=== PATIENT | female | born 2000 | race Caucasian/White ===

== ENCOUNTER 2023-06-21 14:14 | Emergency (ER) | payer OTHER ==
[2023-06-21] MEDS ORDERED: Ondansetron ODT 4 MG TAB ONE (15:32)
[2023-06-21] MEDS ORDERED: Acetaminophen 500 MG TAB ONE ×2 (15:32→15:35)
== END 2023-06-21 17:15 | disposition home or self-care (01) ==
LOC: ERS 14:14
DX: S09.90XA Unspecified injury of head, initial encounter (principal); F17.290 Nicotine dependence, other tobacco product, uncomplicated; W22.8XXA Striking against or struck by other objects, initial encounter
CPT/HCPCS: 70450; 72125; Q0162

== ENCOUNTER 2025-03-30 21:40 | Emergency (ER) | payer OTHER | END 2025-03-31 01:00 | disposition home or self-care (01) | LOC: ERS 21:40 | DX: T78.01XA Anaphylactic reaction due to peanuts, initial encounter (principal); F17.290 Nicotine dependence, other tobacco product, uncomplicated | CPT/HCPCS: 96372; 96374; 96375; J2919 ==